=== PATIENT | male | born 1940 | race Caucasian/White ===

== ENCOUNTER 2023-01-13 07:21 | Day surgery (SDC) | payer MEDICARE ==
[2023-01-09 09:37] LABS: BASOPHILS % (AUTO) 0.6 % (0.0-5.0); EOSINOPHILS % (AUTO) 4.4 % (0.0-8.0); HEMATOCRIT 40.4 % (42-54); MEAN CORPUSCULAR HEMOGLOBIN 33.4 pg (27.0-33.0); MEAN CORPUSCULAR HGB CONC 31.7 g/dL (32.0-36.0); MEAN CORPUSCULAR VOLUME 105.5 fL (79-99); MONOCYTES % (AUTO) 12.1 % (3.0-13.0); NEUTROPHILS % (AUTO) 46.7 % (40.0-77.0); PLATELET COUNT (AUTO) 136 K/uL (130-400); RED BLOOD CELL COUNT(AUTO) 3.83 MIL/uL (4.50-6.20); RED CELL DISTRIBUTION WIDTH 12.2 % (11.0-15.5)
[2023-01-09 09:46] LABS: CREATININE 1.1 mg/dL (0.5-1.5); POTASSIUM 4.5 mmol/L (3.5-5.1)
[2023-01-09 09:47] LABS: INR 1.45 (0.85-1.15); PROTHROMBIN TIME 16.4 SEC (9.6-11.6)
[2023-01-09 09:48] LABS: PARTIAL THROMBOPLASTIN TIME 39.3 SEC (26.3-35.5)
[2023-01-09 09:59] LABS: APPEARANCE,URINE CLEAR (CLEAR); BILIRUBIN,URINE NEGATIVE (NEGATIVE); COLOR,URINE YELLOW (YELLOW); GLUCOSE, URINE (UA) NEGATIVE (NEGATIVE); KETONES,URINE NEGATIVE (NEGATIVE); LEUKOCYTE ESTERASE ,URINE NEGATIVE Leu/uL (NEGATIVE); NITRATE,URINE NEGATIVE (NEGATIVE); PH,URINE 5.5 (5.0-8.0); PROTEIN,URINE NEGATIVE (NEGATIVE); UROBILINOGEN,URINE 0.2 mg/dL (0.2-1.0)
[2023-01-09 10:06] LABS: MUCUS,URINE RARE LPF (None Seen); WBC,URINE 0-1 /HPF (0-1)
[2023-01-09 10:29] LABS: B-TYPE NATRIURETIC PEPTIDE 205 pg/mL (0-100)
[2023-01-09 10:37] VITALS: BP 116/77
[2023-01-13] VITALS (9 sets, daily range): BP systolic 97–124; BP diastolic 39–81
[~2023-01-13] VITALS: Ht 180.3 cm; Wt 75.3 kg
[~2023-01-13 07:21] MED LIST: DAPS25TA PO; EZET10TA48 PO; FURO20TA4 PO; IRON PO; ISOS30TA92 PO; METO25TA6 PO; POTA99CA PO; RIVA20TA PO
[2023-01-13] MEDS ORDERED: 0.9%NACL 1000ML 1,000 ML IV ONE (08:37)
[2023-01-13 09:27] LABS: INR 1.07 (0.85-1.15); PROTHROMBIN TIME 12.4 SEC (9.6-11.6)
[2023-01-13 09:29] LABS: PARTIAL THROMBOPLASTIN TIME 31.2 SEC (26.3-35.5)
[2023-01-13] MEDS ORDERED: MIDAZOLAM HCL 1 MG/ML 2ML VIAL ONE (09:39)
[2023-01-13] MEDS ORDERED: LIDOCAINE HCL 400MG/20ML VIAL ONE (09:39)
[2023-01-13] MEDS ORDERED: IOHEXOL 350 MG/ML 100ML INFUS..BTL IV ONE ×2 (09:39→10:16)
[2023-01-13] MEDS ORDERED: FENTANYL CITRATE PF 50 MCG/1 ML 2ML VIAL ONE (09:39)
[2023-01-13] MEDS ORDERED: BIVALIRUDIN 250 MG/VIAL IV ONE (09:40)
[2023-01-13] MEDS ORDERED: HEPARIN 10,000 UNIT/10ML (1,000 UNIT/ML) VIAL ONE (09:40)
[2023-01-13] MEDS ORDERED: NITROGLYCERIN 50MG VIAL ONE (09:40)
[2023-01-13] MEDS ORDERED: IOHEXOL-350 50ML VIAL IV ONE (09:40)
[2023-01-13] MEDS ORDERED: 0.9%NACL 1000ML 1,000 ML IV SCH (11:00)
== END 2023-01-13 14:30 | disposition home or self-care (01) ==
LOC: DAH 07:21
PROVIDERS: ATTEND Internal Medicine Cardiovascular Disease
DX: I25.119 Atherosclerotic heart disease of native coronary artery with unspecified angina pectoris (principal); I25.82 Chronic total occlusion of coronary artery; I48.19 Other persistent atrial fibrillation; I11.0 Hypertensive heart disease with heart failure; I50.23 Acute on chronic systolic (congestive) heart failure; E78.5 Hyperlipidemia, unspecified; Z79.01 Long term (current) use of anticoagulants; Z79.899 Other long term (current) drug therapy; Z98.890 Other specified postprocedural states
CPT/HCPCS: 80048; 83880; 85025; 85610 ×2; 85730 ×2; 81001; 36415 ×2; 71045; 93005; 93459; C1769; C1894 ×2; C1760; J3010; J3490 ×2; J7030; J2250; Q9967 ×2; A4215; A4222; A4221; A4663; A4216; A4606; Q9965 ×2; A4223 ×3; 96360; 96361; J0583; J1644